=== PATIENT | male | born 1990 | race Caucasian/White ===

== ENCOUNTER 2021-07-09 20:42 | Emergency (ER) | payer OTHER, SELFPAY ==
[2021-07-09 21:45] LABS: Bilirubin Neg (Negative); Blood, Urine 10 (Negative); Clarity Slightly Cloudy (Clear); Glucose, Urine (Dipstick) Normal (Negative); Ketone, Urine Negative (Negative); Leukocyte Negative (Negative); Nitrite Negative (Negative); Protein, Urine (Dipstick) 30 mg/dl (Neg-Trace); Specific Gravity, Urine 1.025 (1.002-1.036)
[2021-07-09 22:18] LABS: RBC/HPF 0-3 HPF (0-3)
[2021-07-09] MEDS ORDERED: Ondansetron PF 4 MG/2 ML Vial ONE (22:18)
[2021-07-09] MEDS ORDERED: Morphine 4 MG/ML VIAL ONE (22:18)
[2021-07-09 22:19] LABS: Bacteria/HPF Rare-Few HPF (None Seen)
[2021-07-09 22:20] LABS: ALT (SGPT) 87 U/L (8-55); AST (SGOT) 63 U/L (5-34); Albumin 4.2 g/dL (3.5-5.0); Alkaline Phosphatase 70 U/L (40-110); Anion Gap 13 mmol/L (10-20); BUN (Urea Nitrogen) 11 mg/dL (8.9-20.6); Bilirubin, Total 0.8 mg/dL (0.2-1.2); Calc. Creatinine Clearance 0 mL/min (70-130); Calcium 9.4 mg/dL (7.8-10.44); Carbon Dioxide 27 mmol/L (22-29); Chloride 105 mmol/L (98-107); Globulin 3.6 g/dL (2.4-3.5); Glucose 89 mg/dL (70-105); Lipase 32 U/L (8-78); Potassium 3.9 mmol/L (3.5-5.1); Protein, Total 7.8 g/dL (6.0-8.3); Sodium 141 mmol/L (136-145)
[2021-07-09 22:31] LABS: #Basophils 0.1 10x3/uL (0.0-0.2); #Eosinphils 0.3 10x3/uL (0.0-0.5); #Monocytes 0.9 10x3/uL (0.0-1.1); #Neutrophils 7.4 10x3/uL (1.5-8.4); %Basophils 0.7 % (0.0-2.0); %Eosinophils 2.2 % (0.0-6.0); %Lymphocytes 29.7 % (18.0-47.0); %Monocytes 7.3 % (0.0-10.0); %Neutrophils 59.7 % (40.0-75.0); Mean Corpuscular HGB CONC 31.4 g/dL (32.0-36.0); Mean Corpuscular Hemoglobin 25.4 pg (27.0-33.0); Mean Corpuscular Volume 80.9 fl (81.2-95.1); Mean Platelet Volume 8.5 fl (7.4-10.4); Platelet Count 321 10x3/uL (150-450); RBC Distribution Width 15.7 % (11.5-14.5); Red Blood Cell (RBC) Count 5.51 10x6/uL (4.32-5.72); White Blood Cell (WBC) Count 12.4 10x3/uL (3.5-10.5)
== END 2021-07-10 00:52 | disposition home or self-care (01) ==
LOC: CSHERS 20:42
DX: R10.31 Right lower quadrant pain (principal); N50.811 Right testicular pain; D72.829 Elevated white blood cell count, unspecified; I10 Essential (primary) hypertension; Z87.442 Personal history of urinary calculi
CPT/HCPCS: 74177; 76870; 80053; 81003; 81015; 83690; 85025; 93976; 96374; 96375; J2270; J2405

== ENCOUNTER 2021-11-11 17:56 | Emergency (ER) | payer SELFPAY | END 2021-11-11 19:13 | disposition home or self-care (01) | LOC: CSHERS 17:56 | DX: J02.9 Acute pharyngitis, unspecified (principal); I10 Essential (primary) hypertension | CPT/HCPCS: 87081; 87430; 99283 ==